=== PATIENT | female | born 1965 | race Caucasian/White ===

== ENCOUNTER 2023-01-18 13:18 | Outpatient (OUT) | payer MEDICARE, SELFPAY ==
--- NOTE | 2023-01-18 13:27 | MM_ITS ---
Patient: CUONG MORROW Exam Date: 01/18/2023 : 1965 Gender:F Ordering : Non-Staff Physician Admission #: [id number] Family : BRITTANY SANTIAGO Order #: [id number] CLICK HERE TO VIEW EXAM RADIOLOGY REPORT PROCEDURE: MM TOMOSYNTHESIS SCREENING BI COMPARISON: MAMMO POST BIOPSY RIGHT, 10/17/2020. MG MAMM SCREEN 3D MARTÍN CAD, 11/14/2021. INDICATIONS: Screening Calculator Name NCI Breast Cancer Risk Assessment Tool 5 Year Breast Cancer Risk 1.80% Lifetime Breast Cancer Risk 10.20% Personal Breast Cancer No Personal Ovarian Cancer No Treatments None Family Cancers Aunt-maternal with breast cancer at age ~60; Grandfather-maternal with colon cancer at age 80. LOCATION: [facility] BREAST COMPOSITION: Scattered areas fibroglandular density. FINDINGS: DIAGNOSTIC CATEGORY 2--BENIGN FINDING. NO CHANGE FROM COMPARISON. Scattered benign-appearing nodules are present. Scattered benign-appearing calcifications are present. Scattered benign-appearing lymph nodes are present. RIGHT BREAST: No significant suspicious finding. LEFT BREAST: No significant suspicious finding. RECOMMENDATIONS: ROUTINE MAMMOGRAM AND CLINICAL EVALUATION IN 12 MONTHS. PLEASE NOTE: A NORMAL MAMMOGRAM DOES NOT EXCLUDE THE POSSIBILITY OF BREAST CANCER. A CLINICALLY SUSPICIOUS PALPABLE LUMP SHOULD BE BIOPSIED. Dictated by: Kirby Lo MD on 01/21/2023 at 09:45 Approved by: Kirby Lo MD on 01/21/2023 at 09:51
== END 2023-01-18 13:19 | disposition home or self-care (01) ==
LOC: MAMMO 13:18
PROVIDERS: PCP Internal Medicine
DX: Z12.31 Encounter for screening mammogram for malignant neoplasm of breast (principal); Z80.3 Family history of malignant neoplasm of breast; Z80.0 Family history of malignant neoplasm of digestive organs
CPT/HCPCS: 77063; 77067

== ENCOUNTER 2025-03-19 11:05 | Outpatient (OUT) | payer MEDICARE, SELFPAY ==
--- OUTSIDE RECORDS SUMMARY | 2025-03-19 11:11 | XMS_ITS | Clinical Summary ---
Author Organization [facility] Address [address] [place] [address] Care Team Providers Care Mission Commander Name Role Phone Unavailable Primary Care Provider Unavailabl e Allergies Active AllergyReactionsCriticalityNoted DateCommentsHydrocodone-Acetaminophen Xfftsca4401/13/20246012FdntbmddEltmwel77/23/2024Oxycodone-Fppwjlxdnuxpa90/23/2024 Rycqxsthtta11/23/2024 Medications MedicationSigDispense QuantityRefillsLast FilledStart DateEnd DateStatus semaglutide (Rybelsus) 14 MG tablet Take 14 mg by mouth in the morning. Take before meals.Active fluticasone (Flonase) 50 MCG/ACT nasal spray Administer 1 spray into each nostril Daily Shake gently. Before first use, prime pump. After use, clean tip and replace cap.Active calcitriol (Rocaltrol) 0.5 MCG capsule Take 0.5 mcg by mouth DailyActive calcium citrate (Calcitrate) 950 (200 Ca) MG tablet Take 950 mg by mouth DailyActive biotin 1 MG capsule Take by mouthActive atorvastatin (Lipitor) 40 MG tablet Take 40 mg by mouth DailyActive famotidine (Pepcid) 40 MG tablet Take by mouthActive montelukast (Singulair) 10 MG tablet Take by mouthActive levocetirizine (Xyzal) 5 MG tablet Take by mouth in the eveningActive potassium chloride ER (Micro-K) 10 MEQ ER capsule Take 10 mEq by mouth in the morning and 10 mEq before bedtime. Do not crush or chew..Active acetaminophen (Tylenol) 325 MG tablet Take by mouthActive Active Problems No known active problems Social History Tobacco UseTypesPacks/DayYears UsedDateSmoking Tobacco: Every DayCigarettes Smokeless Tobacco: Never Tobacco Cessation:Ready to Q uit: Not Asked; Counseling Given: Not Answered CommentsUnknownSex and Gender InformationValueDate RecordedSex Assigned at BirthNot on fileLegal CszTsqqun77/15/2023 7:06 PM EDTGender IdentityNot on fileSexual OrientationNot on file Plan of Treatment Not on file Insurance
--- NOTE | 2025-03-19 11:40 | MM_ITS ---
Patient Name: CUONG MORROW MR#: [id number] : 1965 Exam Date: 03/19/2025 Ordering Doctor: DR BRITTANY SANTIAGO D.O. RADIOLOGY REPORT PROCEDURE: MM TOMOSYNTHESIS SCREENING BI COMPARISON: MM TOMOSYNTHESIS SCREENING BI, 01/18/2023. MG MAMM SCREEN 3D MARTÍN CAD, 11/14/2021. MAMMO POST BIOPSY RIGHT, 10/17/2020. MG MAMM MARTÍN SCRN W CAD DIG, 06/29/2013. INDICATIONS: Screening Calculator Name NCI Breast Cancer Risk Assessment Tool 5 Year Breast Cancer Risk 1.90% Lifetime Breast Cancer Risk 9.70% Personal Breast Cancer No Personal Ovarian Cancer No Treatments None Family Cancers Aunt-maternal with breast cancer at age ~60; Grandfather-maternal with colon cancer at age 80. LOCATION: [facility] BREAST COMPOSITION: There are scattered areas of fibroglandular density. FINDINGS: DIAGNOSTIC CATEGORY 1--NEGATIVE. RIGHT BREAST: No significant suspicious finding. LEFT BREAST: No significant suspicious finding. RECOMMENDATIONS: ROUTINE MAMMOGRAM AND CLINICAL EVALUATION IN 12 MONTHS. Dictated by: Trino Fox DO on 03/19/2025 at 13:44 Approved by: Trino Fox DO on 03/19/2025 at 13:47
== END 2025-03-19 11:06 | disposition home or self-care (01) ==
PROVIDERS: PCP Internal Medicine; Visit Provider Internal Medicine
DX: Z12.31 Encounter for screening mammogram for malignant neoplasm of breast (principal); Z80.3 Family history of malignant neoplasm of breast; Z80.0 Family history of malignant neoplasm of digestive organs
CPT/HCPCS: 77063; 77067